=== PATIENT | female | born 1995 | race Two or more races ===

== ENCOUNTER 2018-05-14 12:17 | Emergency (ER) | payer OTHER ==
[~2018-05-14] VITALS: Ht 152.4 cm; Wt 106.6 kg
== END 2018-05-14 14:36 | disposition left against medical advice (07) ==
LOC: ER 12:17
DX: Z53.20 Procedure and treatment not carried out because of patient's decision for unspecified reasons (principal)

== ENCOUNTER → 2018-05-14 | Emergency (ER) | payer OTHER ==
[~2018-05-14] VITALS: Ht 152.4 cm; Wt 108.0 kg
[~2018-05-14] MED LIST: ALBUTEROL2.5 MG/3 M IH; ZITHROMAX500 MG PO; ZYNCOF 20-400120 ML PO; [UNRECOGNIZED DRUG - OTHER]
== END | disposition home or self-care (01) ==
LOC: ER 02:05
DX: J06.9 Acute upper respiratory infection, unspecified (principal)

== ENCOUNTER 2019-06-22 16:16 | Emergency (ER) | payer OTHER ==
[~2019-06-22] VITALS: Ht 160 cm; Wt 99.8 kg
== END 2019-06-22 18:19 | disposition home or self-care (01) ==
LOC: ER 16:16
DX: R42 Dizziness and giddiness (principal); H61.23 Impacted cerumen, bilateral

== ENCOUNTER 2024-11-15 14:44 | Inpatient (IN) | payer OTHER ==
[~2024-11-15] VITALS: Ht 162.6 cm; Wt 117.9 kg
--- NOTE | 2024-11-15 15:46 | NUR ---
PTE ALERTA Y ORIENTADA X 3 ESFERAS QUIEN REFIERE DESDE ESTA MANANA PRESENTA FALTA DE AIRE,VOMITOS X 4 Y DOLOR EN FLANCO RT.
[2024-11-15] MEDS ORDERED: ONDANSETRON HCL 2 MG/ML VIAL ONE (16:24)
[2024-11-15] MEDS ORDERED: FAMOTIDINE/PF 20 MG/2 ML VIAL ONE (16:24)
[2024-11-15] MEDS ORDERED: KETOROLAC TROMETHAMINE 30 MG VIAL ONE ×2 (16:24→20:54)
[2024-11-15] MEDS ORDERED: KETOROLAC TROMETHAMINE 30 MG VIAL IU ONE (16:30)
[2024-11-15] MEDS ORDERED: FAMOtidine 10 MG/ML (4ML VIAL) IV ONE (16:30)
[2024-11-15] MEDS ORDERED: ONDANSETRON HCL 2 MG/ML VIAL IV ONE (16:30)
--- NOTE | 2024-11-15 16:32 | NUR ---
SE EDUCA A PTE SOBRE [place] MED[facility], SE JENNIFER MUESTRAS DE LABORATORIO UTILIZANDO MEDIDAS ASEPTICAS. SE COLOCA H/L ROBERT SE EDEMA. SE ADMINISTRAN MEDICAMENTOS LOS CUALES [place]. SE NOTIFICA ESTUDIO DE SONOGRAFIA PENDIENTE.
[2024-11-15 17:03] LABS: INR 1.01
[2024-11-15 17:11] LABS: URINE APPEARANCE Cloudy; URINE BILIRRUBIN Negative (NEGATIVE); URINE BLOOD Negative; URINE COLOR Yellow; URINE GLUCOSE Negative (NEGATIVE); URINE KETONE Negative (NEGATIVE); URINE LEUKOCYTE Negative; URINE NITRATE Negative; URINE PROTEIN 30 (NEGATIVE); URINE UROBILINOGEN 0.2 E.U./dl
[2024-11-15 17:16] LABS: URINE EPITHELIAL CELLS 53.3 uL (0.0-38.8); URINE RBC 13.9 uL (0.0-20.8)
[2024-11-15 17:45] LABS: ALBUMIN 4.4 gm/dL (3.4-5.0); ALKALINE PHOSPHATASE 64 U/L (50-136); ALT/SGPT 22 U/L (12-78); ANION GAP 12 (10.0-20.0); AST/SGOT 22 U/L (15-37); BILIRUBIN TOTAL 0.54 mg/dL (0.3-1.2); BLOOD UREA NITROGEN 7 mg/dL (7-18); BUN CREA RATIO 11 (7.0-25.0); CALCIUM 9.3 mg/dL (8.5-10.1); CARBON DIOXIDE 26 mEq/L (21-32); CHLORIDE 105 mmol/L (98-107); CREATININE SERUM 0.66 mg/dL (0.55-1.02); GFR 104.46; GLOBULINA 4.5 G/DL (2.4-3.5); GLUCOSE FASTING 120 mg/dL (65-100); OSMOLALITY SERUM 277 MOSM/KG (275-295); SODIUM 139 mmol/L (136-145); TOTAL PROTEIN 8.9 gm/dL (6.4-8.2)
[2024-11-15 17:53] LABS: HCG QUANTITATIVE < 1 mUI/mL (1-3)
[2024-11-15 18:07] LABS: BILIRUBIN TOTAL 0.49 mg/dL (0.3-1.2); BILIRUBIN,CONJUGATED 0.14 mg/dL (0.0-0.2); BILIRUBIN,UNCONJUGATED 0.35 mg/dL (0.0-0.6)
[2024-11-15 18:28] LABS: HEMATOCRIT 40.9 % (36.0-45.00); HEMOGLOBIN 13.7 g/dL (12.0-15.00); MEAN CELL VOLUME 81.5 fL (80.00-100.00); MEAN CORPUSCULAR HEMOGLOBIN 27.2 pg (27.00-32.0); MEAN CORPUSCULAR HGB CONC 33.4 g/dl (32.0-36.0); PLATELET COUNT 321 K/uL (150-450); RED BLOOD COUNT 5.02 M/uL (4.00-6.00); RED CELL DISTRIBUTION WIDTH 14.5 % (11.5-14.5)
[2024-11-15] MEDS ORDERED: PIPERACILLIN/TAZOBACTAM SODIUM 3.375 GM in 0.9 % SODIUM CHLORIDE 100 ML IV SCH (19:26)
[2024-11-15] MEDS ORDERED: MORPHINE SULFATE 2 MG/ML CARTRIDGE IV PRN (19:30)
[2024-11-15] MEDS ORDERED: 0.9 % SODIUM CHLORIDE 1,000 ML IV SCH (19:30)
[2024-11-15] MEDS ORDERED: ACETAMINOPHEN 500 MG GEL..CAP PO PRN (19:30)
[2024-11-15] MEDS ORDERED: MORPHINE SULFATE 4 MG/ML CARTRIDGE IV ONE (19:30)
[2024-11-15] MEDS ORDERED: ONDANSETRON HCL 4 MG in 0.9 % SODIUM CHLORIDE 50 ML IV PRN (19:30)
[2024-11-15] MEDS ORDERED: KETOROLAC TROMETHAMINE 15 MG VIAL IU ONE (19:30)
[2024-11-15] MEDS ORDERED: PIPERACILLIN/TAZOBACTAM SODIUM 3.375 GM VIAL IV ONE (20:54)
[2024-11-16] VITALS: BP 134/88; O2SAT 97
[2024-11-16 02:24] VITALS: BP 138/88
[2024-11-16 08:49] VITALS: BP 118/80
[2024-11-16] MEDS ORDERED: FAMOTIDINE/PF 20 MG in 0.9 % SODIUM CHLORIDE 8 ML IV PUSH SCH (09:00)
[2024-11-16] MEDS ORDERED: BUPIVACAINE HCL/MPF 0.5% 30ML VIAL ONE (18:02)
[2024-11-16] MEDS ORDERED: SUGAMMADEX SODIUM 200 MG/2 ML VIAL IV ONE (18:50)
[2024-11-16] MEDS ORDERED: MORPHINE SULFATE 4 MG/ML VIAL IV ONE ×2 (20:15→20:45)
[2024-11-16 22:18] VITALS: BP 151/83; O2SAT 99
[2024-11-17 00:48] VITALS: BP 136/86
[2024-11-17 06:54] LABS: HEMATOCRIT 34.8 % (36.0-45.00); HEMOGLOBIN 11.5 g/dL (12.0-15.00); MEAN CELL VOLUME 83.3 fL (80.00-100.00); MEAN CORPUSCULAR HEMOGLOBIN 27.5 pg (27.00-32.0); PLATELET COUNT 255 K/uL (150-450); RED BLOOD COUNT 4.18 M/uL (4.00-6.00); RED CELL DISTRIBUTION WIDTH 14.3 % (11.5-14.5)
[2024-11-17 07:04] LABS: ALBUMIN 3.2 gm/dL (3.4-5.0); BILIRUBIN TOTAL 1.06 mg/dL (0.3-1.2); CREATININE SERUM 0.45 mg/dL (0.55-1.02); GFR 162.51; GLOBULINA 3.3 G/DL (2.4-3.5); MAGNESIUM 1.7 mg/dL (1.8-2.4); PHOSPHOROUS 3.1 mg/dL (2.5-4.9); POTASSIUM 3.68 mEq/L (3.5-5.1); TOTAL PROTEIN 6.5 gm/dL (6.4-8.2)
[2024-11-17 08:50] VITALS: BP 143/97
[2024-11-17] MEDS ORDERED: SIMETHICONE 125 MG CAPSULE PO SCH (09:00)
[2024-11-17] MEDS ORDERED: SUCRALFATE 1 G TABLET PO SCH (09:00)
[2024-11-17] MEDS ORDERED: MAGNESIUM SULFATE IN WATER 50 ML IV NR (11:00)
[2024-11-17 17:13] VITALS: BP 142/89; O2SAT 99
[2024-11-17] MEDS ORDERED: ACETAMINOPHEN 500 MG GEL..CAP PO SCH (20:00)
[2024-11-18 01:10] VITALS: BP 150/90; O2SAT 97
[2024-11-18 05:25] LABS: HEMATOCRIT 32.6 % (36.0-45.00); HEMOGLOBIN 10.8 g/dL (12.0-15.00); MEAN CELL VOLUME 82.4 fL (80.00-100.00); MEAN CORPUSCULAR HEMOGLOBIN 27.3 pg (27.00-32.0); MEAN CORPUSCULAR HGB CONC 33.2 g/dl (32.0-36.0); PLATELET COUNT 244 K/uL (150-450); RED BLOOD COUNT 3.96 M/uL (4.00-6.00); RED CELL DISTRIBUTION WIDTH 14.2 % (11.5-14.5)
[2024-11-18 09:45] VITALS: BP 143/90; O2SAT 100
[2024-11-18] MEDS ORDERED: TRAM1TAB98 PO (12:24)
== END 2024-11-18 14:07 | disposition home or self-care (01) | DRG 419 ==
LOC: ER 14:47 → MEDJ 21:05
PROVIDERS: General Practice; Surgery; ADMIT Internal Medicine; ATTEND Internal Medicine
PROC: BW40ZZZ Ultrasonography of Abdomen (ICD-10-PCS; 2024-11-15)
PROC: 0FT44ZZ Resection of Gallbladder, Percutaneous Endoscopic Approach (ICD-10-PCS; principal; 2024-11-16 15:00)
DX: K80.00 Calculus of gallbladder with acute cholecystitis without obstruction (principal); E66.01 Morbid (severe) obesity due to excess calories; Z68.30 Body mass index [BMI] 30.0-30.9, adult